=== PATIENT | male | born 1950 | race Two or more races ===

== ENCOUNTER 2016-06-18 16:26 | Inpatient (IN) | payer BC ==
[2016-06-18] MEDS ORDERED: BISACODYL 10 MG SUPP PR PRN (19:00)
[2016-06-18] MEDS ORDERED: GLUCOSE GEL 15 GRAM TUBE PO PRN ×2 (19:00)
[2016-06-18] MEDS ORDERED: DEXTROSE 50% 50 ML SYRINGE IV PRN ×2 (19:00)
[2016-06-18] MEDS ORDERED: GLUCAGON 1 MG INJ IM PRN (19:00)
[2016-06-18] MEDS ORDERED: GLUCOSE GEL 15 GRAM TUBE BUCCAL PRN (19:00)
[2016-06-18] MEDS ORDERED: ACETAMINOPHEN 325 MG TAB PO PRN (19:00)
[2016-06-18] MEDS ORDERED: LACTULOSE 30ML CUP PO PRN (19:00)
[2016-06-18] MEDS ORDERED: MAGNESIUM HYDROXIDE 30ML CUP PO PRN (19:00)
[2016-06-18 20:00] VITALS: BP 125/82; RESP 18
[2016-06-18] MEDS: Insulin NOVOLOG SS MILD Algorithm (SS with meals and bedtime) SC SCH (21:00)
[2016-06-18] MEDS: ATORVASTATIN 80 MG TAB PO SCH (21:05)
[2016-06-18] MEDS: SENNA TAB PO SCH (21:05)
[2016-06-18] MEDS: DOCUSATE SODIUM 100 MG CAP PO SCH (21:06)
[2016-06-18] MEDS: HEPARIN 5,000 UNIT/0.5 ML SYG SC SCH (21:13)
[2016-06-18 23:17] LABS: ADD UMIC YES; URINE BILIRUBIN (Dip) NEGATIVE (NEGATIVE); URINE BLOOD (Dip) 1+ (NEGATIVE); URINE COLOR LT. YELLOW (YELLOW); URINE GLUCOSE (Dip) NEGATIVE (NEGATIVE); URINE KETONES (Dip) TRACE (NEGATIVE); URINE LEUKOCYTE ESTERASE (Dip) TRACE (NEGATIVE); URINE NITRITE (Dip) NEGATIVE (NEGATIVE); URINE TOTAL PROTEIN (Dip) NEGATIVE (NEGATIVE); URINE UROBILINOGEN (Dip) 1.0 E.U./dL (0.1-1.0)
[2016-06-18 23:49] LABS: BACTERIA,URINE FEW; SQUAMOUS EPITHELIAL CELL,UR RARE
[2016-06-19] MEDS: HEPARIN 5,000 UNIT/0.5 ML SYG SC SCH ×3 (06:29→21:21)
[2016-06-19 06:52] LABS: BASOPHIL # 0.1 10^3/ul (0.0-0.1); BASOPHILS % 0.7 % (0.0-2.0); EOSINOPHILS # 0.3 10^3/ul (0.0-0.5); EOSINOPHILS % 3.1 % (0.0-7.0); HEMATOCRIT 44.2 % (42.0-52.0); LYMPHOCYTES # 1.3 10^3/ul (0.8-2.9); LYMPHOCYTES % 14.1 % (15.0-51.0); MEAN CORPUSCULAR HEMOGLOBIN 28.6 pg (29.0-33.0); MEAN CORPUSCULAR VOLUME 84.1 fl (82.0-101.0); MEAN PLATELET VOLUME 8.8 fl (7.4-10.4); MONOCYTE # 1.6 10^3/ul (0.3-0.9); MONOCYTES % 17.3 % (0.0-11.0); NEUTROPHIL # 5.8 10^3/ul (1.6-7.5); NEUTROPHILS % 64.8 % (39.0-77.0); PLATELET COUNT 203 10^3/UL (140-440); RED BLOOD COUNT 5.26 10^6/ul (4.70-6.10); RED CELL DISTRIBUTION WIDTH 13.5 % (11.5-14.5)
[2016-06-19 06:58] LABS: CONDITION 1; LH ANALYZER COMMENTS 1
[2016-06-19 07:01] LABS: ALBUMIN 4.1 g/dl (3.3-4.9)
[2016-06-19 07:02] LABS: POTASSIUM 4.2 mmol/L (3.5-5.1)
[2016-06-19 07:04] LABS: ALBUMIN/GLOBULIN RATIO 1.1; BILIRUBIN,INDIRECT 0.5 mg/dl (0-1.1); BILIRUBIN,TOTAL 0.5 mg/dl (0.2-1.3); CREATININE 0.81 mg/dl (0.61-1.24); TOTAL PROTEIN 7.8 g/dl (6.1-8.1)
[2016-06-19 07:05] LABS: CALCIUM 9.2 mg/dl (8.4-10.2)
[2016-06-19] MEDS: Insulin NOVOLOG SS MILD Algorithm (SS with meals and bedtime) SC SCH ×4 (07:05→21:00)
[2016-06-19 08:17] VITALS: BP 128/93; PULSE 84; RESP 18
[2016-06-19] MEDS: AMLODIPINE 10 MG TAB PO SCH (08:38)
[2016-06-19] MEDS: DOCUSATE SODIUM 100 MG CAP PO SCH ×2 (08:38→21:15)
[2016-06-19] MEDS: ASPIRIN 81 MG TAB PO SCH (08:38)
[2016-06-19] MEDS: LISINOPRIL 20 MG TAB PO SCH (08:39)
--- NOTE | 2016-06-19 10:36 | HP ---
DATE OF ADMISSION: 06/18/2016 CHIEF COMPLAINT: Acute stroke, cerebrovascular accident. HISTORY OF PRESENT ILLNESS: This is a 65-year-old male with a past medical history of hypertension who presented to an outside hospital with complaints of right-sided weakness. The patient's history began last several hours prior to admission when he noted early in the a.m. a right-sided weakness and arm weakness and difficulty ambulating. The patient went to work, was noted to have slurred spe ech by his coworkers, as a result he came to the emergency room for evaluation. [facility] which showed evidence of subacute infarct of the left nelson. The patient was s ubsequently admitted to [facility] telemetry. He was seen by a neurologist. The patient was started on aspirin and statin therapy. The patient's blood pressures were improved during his hospital course. The patient, however, had a significant premorbid decline was transferred to [facility] acute rehab for continued care. Upon my evaluation of patient at this time he is currently stable, complaining of right-sided weakne ss. Denies any fevers, chills, nausea, vomiting, shortness of breath. PAST MEDICAL HISTORY: History of hypertension. ALLERGIES: NO KNOWN DRUG ALLERGIES. SOCIAL HISTORY: Does not smoke or do drugs. PAST SURGICAL HISTORY: None. MEDICATIONS: Patient medications have been reviewed and reconciled. FAMILY HISTORY: Noncontributory. REVIEW OF SYSTEMS: A 14-point review of systems was conducted. Pertinent positives in HPI, otherwi se negative. PHYSICAL EXAMINATION: VITAL SIGNS: Blood pressure is 120/93, respiration 18, pulse 84, temperature 98.3. HEENT: Head is normocephalic. Pupils are reactive to light. NECK: Supple. HEART: Regular rate. LUNGS: Show diminished breath sounds at the base. ABDOMEN: Soft, nontender to palpation. No rebound or guarding. EXTREMITIES: Negative for clubbing, cyanosis, no edema. DERMATOLOGIC: No rashes. NEUROLOGIC: The patient has noted right-sided weakness and pronated drift. LABORATORY DATA: Shows white count 9.0, hemoglobin 15.0, platelet count is 3203. BMP within normal limits. Urinalysis shows no growth. ASSESSMENT AND PLAN: This is a 65-year-old male who presents with: 1. Acute cerebrovascular accident of the left enlson with noted right-sided weakness. Plan at this p oint is for the patient to receive physical therapy and occupational therapy. Will continue medical management with aspirin and statin therapy. Continue current blood pressure regimen, would keep sy stolic blood pressures less than 140. Otherwise, continue supportive care. 2. Hypertension. Blood pressure currently well controlled. Continue current medical management wi th lisinopril and amlodipine. 3. Dyslipidemia. Continue statin therapy. 4. Gastrointestinal and deep venous thrombosis prophylaxis. Continue proton pump inhibitor and hep samuel. 5. Hyperglycemia, possible diabetes. Will check hemoglobin A1c. Continue insulin sliding scale at this time. Please note I spent over 30 minutes of face to face time with this patient, discussing code status. The patient is FULL CODE. Dictated By: ALPESH CARPENTER/RENEE Conf#: [id number] DID#: [id number]
--- NOTE | 2016-06-19 12:38 | CONS ---
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 ACTIVE COMORBIDITIES: 1. Dysphagia. 2. Hypertension. 3. Diabetes mellitus. 4. Impairments in self-care, mobility and cognition. HISTORY OF PRESENT ILLNESS: The patient is a pleasant 65-year-old right-handed gentleman with a his tory of hypertension, diabetes mellitus who was admitted to [facility] with severa l hours of right-sided weakness, dysarthria and gait instability. MRI of the brain did demonstrate a subacute infarct in the left nelson. The patient was also noted to have significant dysphagia and i mpairments in self-care and mobility as compared to baseline. The patient has been cleared to trans adriana to the rehabilitation unit for comprehensive interdisciplinary rehab care. FUNCTIONAL HISTORY: Prior to recent events, he was independent in self-care tasks and mobility. Cu rrently, he requires moderate to maximal assist for self-care and mobility tasks. I have reviewed the preadmission screen and the patient's current functional status is consistent wi th the preadmission screen. SOCIAL HISTORY: The patient lives at home with family and hopes to return there upon discharge. PAST MEDICAL HISTORY: 1. Hypertension. 2. Diabetes mellitus. CURRENT MEDICATIONS: 1. Amlodipine 10 mg p.o. daily. 2. Lisinopril 40 mg p.o. daily. 3. Atorvastatin 80 mg p.o. daily. 4. Aspirin 81 mg p.o. daily. 5. Heparin 5000 units subq t.i.d. ALLERGIES: THE PATIENT WITH NO KNOWN DRUG ALLERGIES. PHYSICAL EXAMINATION: VITAL SIGNS: The patient is currently afebrile with stable vital signs. HEENT: Extraocular motions are intact. The patient with decreased nasolabial fold. The oropharynx is clear. NECK: Supple. LUNGS: Clear anteriorly. CARDIAC: S1, S2. ABDOMEN: Soft, nontender, positive bowel sounds. NEUROLOGIC: He has a notable dysarthria. He will follow simple 1-step commands. He demonstrates g ood strength in the left upper and lower extremity. He has 3- strength in the right upper extremity , 3+ to 4- strength in the right lower extremity. He has impaired static and dynamic balance. PLAN: The patient has been admitted for comprehensive interdisciplinary acute rehab and is anticipa julian to tolerate 3 hours of daily therapy in divided doses for at least 5/7 days a week. The treatme nt plan will include: 1. Physical therapy to focus on bed mobility, transfers, and household ambulation with the goal of having the patient reach a standby assist level. 2. Occupational therapy to focus on hygiene, grooming, dressing, bathing, and toileting activities with the goal of having the patient reach standby assist level. 3. Speech therapy for full dysphasia management and cognitive assessment and training with the goal of having the patient meet nutritional needs by mouth and to return to baseline cognition. 4. Rehabilitation nursing for carryover of therapeutic interventions, the goal of continent of lee l and bladder, and the goal of patient and family education with regards to the aforementioned issue s. REHABILITATION BARRIER: Dysphagia. INTERVENTION FOR BARRIER: Speech therapy. I acknowledge that I performed a full physical examination on this patient within 24 hours of admiss ion to the rehabilitation unit. I believe the patient is a good candidate for comprehensive interdi sciplinary rehab care and is anticipated to make reasonable goals in a reasonable period of time as outlined above. Dictated By: FAINA HECTOR/RENEE Conf#: [id number] DID#: [id number]
[2016-06-19 20:10] VITALS: BP 127/77; RESP 18
[2016-06-19] MEDS: SENNA TAB PO SCH (21:15)
[2016-06-19] MEDS: ATORVASTATIN 80 MG TAB PO SCH (21:15)
[2016-06-20] MEDS: HEPARIN 5,000 UNIT/0.5 ML SYG SC SCH ×3 (05:58→21:00)
[2016-06-20] MEDS: Insulin NOVOLOG SS MILD Algorithm (SS with meals and bedtime) SC SCH ×4 (07:05→20:54)
[2016-06-20 07:30] VITALS: BP 139/83; RESP 18
[2016-06-20] MEDS: DOCUSATE SODIUM 100 MG CAP PO SCH ×2 (08:19→20:53)
[2016-06-20] MEDS: AMLODIPINE 10 MG TAB PO SCH (08:19)
[2016-06-20] MEDS: LISINOPRIL 20 MG TAB PO SCH (08:19)
[2016-06-20] MEDS: ASPIRIN 81 MG TAB PO SCH (08:19)
--- NOTE | 2016-06-20 09:56 | PN ---
DATE: 06/20/2016 SUBJECTIVE: The patient is stable, no acute events overnight. No fevers, chills, nausea, vomiting. OBJECTIVE: VITAL SIGNS: Blood pressure 127/77, respiration 18, pulse 94, temperature 98.4. HEENT: Head is normocephalic. NECK: Supple. HEART: Regular rate. LUNGS: Show diminished breath sounds at the base. ABDOMEN: Soft, nontender to palpation. No rebound or guarding. EXTREMITIES: Negative for clubbing, cyanosis. No edema. DERMATOLOGIC: No rashes. MUSCULOSKELETAL: No joint effusions. NEUROLOGIC: No change in exam. MEDICATIONS: Patient's medications have been reviewed. LABORATORY DATA: Have been reviewed. No new labs. ASSESSMENT AND PLAN: 1. Acute cerebrovascular accident left pontine. Patient has right-sided weakness. Plan is to cont inue physical therapy and occupational therapy. Continue medical management with statin therapy and aspirin. Continue to monitor closely. 2. Hypertension. Continue current blood pressure regimen. 3. Diabetes. The patient's hemoglobin A1c is elevated. Continue metformin. Continue insulin slid ing scale. 4. Dyslipidemia. Continue statin therapy. 5. Gastrointestinal and deep venous thrombosis prophylaxis. Continue proton pump inhibitor and hep samuel. Dictated By: ALPESH CARPENTER/RENEE Conf#: [id number] DID#: [id number]
--- NOTE | 2016-06-20 12:22 | CONS ---
Date/Time of Note Date/Time of Note DATE: 06/20/16 TIME: 12:21 Consult Date/Type/Reason Admit Date/Time Jun 18, 2016 at 17:50 Initial Consult Date Subjective Feeling better, no new complaints Objective pulm- cta card- s1s2 mod assist ambulation Vital Signs Date Time Temp Pulse Resp B/P Pulse Ox O2 Delivery O2 Flow Rate FiO2 06/20/16 07:30 99.7 98 18 139/83 96 06/19/16 08:17 Room Air Intake and Output 06/19/16 06/19/16 06/20/16 15:00 23:00 07:00 Intake Total 480 ml 240 ml 240 ml Output Total 350 ml 250 ml 300 ml Balance 130 ml -10 ml -60 ml Results/Medications Result Diagram: 06/19/1625 06/19/16624 Results 24 hrs Laboratory Tests Test 06/19/16 16:44 06/19/16 21:14 06/20/16 07:02 06/20/16 11:54 Bedside Glucose 103 122 114 115 Medications Current Medications Docusate Sodium (Colace) 100 mg BID PO Last administered on 06/20/16 08:19; Admin Dose 100 MG; Start 06/18/16 at 21:00 Senna (Senokot) 1 tab HS PO Last administered on 06/19/16 21:15; Admin Dose 1 TAB; Start 06/18/16 at 21:00 Acetaminophen (Tylenol Tab) 650 mg Q4H PRN PO PAIN; Start 06/18/16 at 19:00 Bisacodyl (Dulcolax Supp) 10 mg DAILY PRN [place] CONSTIPATION; Start 06/18/16 at 19 :00 Magnesium Hydroxide (Milk Of Mag) 30 ml BID PRN PO CONSTIPATION; Start at 19:00 Lactulose (Enulose) 20 gm DAILY PRN PO CONSTIPATION; Start 06/18/16 at 19:00 Miscellaneous Information 1 ea NOTE XX ; Start 06/18/16 at 19:00 Glucose (Glutose) 15 gm Q15M PRN PO DECREASED GLUCOSE; Start 06/18/16 at 19:00 Glucose (Glutose) 22.5 gm Q15M PRN PO DECREASED GLUCOSE; Start 06/18/16 at 19: 00 Dextrose (D50w Syringe) 25 ml Q15M PRN IV DECREASED GLUCOSE; Start 06/18/16 at 19:00 Dextrose (D50w Syringe) 50 ml Q15M PRN IV DECREASED GLUCOSE; Start 06/18/16 at 19:00 Glucagon (Glucagen) 1 mg Q15M PRN IM DECREASED GLUCOSE; Start 06/18/16 at 19:00 Glucose (Glutose) 15 gm Q15M PRN BUCCAL DECREASED GLUCOSE; Start 06/18/16 at 19 :00 Amlodipine Besylate (Norvasc) 10 mg DAILY PO Last administered on 06/20/16 08: 19; Admin Dose 10 MG; Start 06/19/16 at 09:00 Aspirin (Aspirin) 81 mg DAILY PO Last administered on 06/20/16 08:19; Admin Dose 81 MG; Start 06/19/16 at 09:00 Atorvastatin Calcium (Lipitor) 80 mg HS PO Last administered on 06/19/16 21:15 ; Admin Dose 80 MG; Start 06/18/16 at 21:00 Heparin Sodium (Porcine) (Heparin (5000 Units/0.5 ml)) 5,000 unit Q8 SC Last administered on 06/20/16 05:58; Admin Dose 5,000 UNIT; Start 06/18/16 at 22:00 Lisinopril (Zestril) 40 mg DAILY PO Last administered on 06/20/16 08:19; Admin Dose 40 MG; Start 06/19/16 at 09:00 Assessment/Plan Additional Assessment/Plan Rehab- Left pontine infarct cerebrovascular accident with right-sided weakness. Tolerating rehab program. Fit with Toe-off AFO and knee brace. Dysphagia- speech therapy. Hypertension. Diabetes mellitus-monitor. FAINA JAIN MD Jun 20, 2016 12:22
[2016-06-20] MEDS: metFORMIN 500 MG TAB PO SCH (18:25)
[2016-06-20 20:00] VITALS: BP 140/86; RESP 18
[2016-06-20] MEDS: ATORVASTATIN 80 MG TAB PO SCH (20:53)
[2016-06-20] MEDS: SENNA TAB PO SCH (20:54)
[2016-06-21] MEDS: HEPARIN 5,000 UNIT/0.5 ML SYG SC SCH ×3 (06:14→22:00)
[2016-06-21] MEDS: Insulin NOVOLOG SS MILD Algorithm (SS with meals and bedtime) SC SCH ×4 (07:05→20:51)
[2016-06-21 07:41] VITALS: BP 101/55; PULSE 84; RESP 18
[2016-06-21 08:00] VITALS: BP 138/68; RESP 20
[2016-06-21] MEDS: AMLODIPINE 10 MG TAB PO SCH (08:14)
[2016-06-21] MEDS: ASPIRIN 81 MG TAB PO SCH (08:14)
[2016-06-21] MEDS: LISINOPRIL 20 MG TAB PO SCH (08:14)
[2016-06-21] MEDS: DOCUSATE SODIUM 100 MG CAP PO SCH ×2 (08:14→20:45)
[2016-06-21] MEDS: metFORMIN 500 MG TAB PO SCH ×2 (08:14→17:31)
[2016-06-21 08:15] VITALS: BP 126/84; PULSE 84; RESP 18
--- NOTE | 2016-06-21 09:25 | CONS ---
Date/Time of Note Date/Time of Note DATE: 06/21/16 TIME: 09:23 Consult Date/Type/Reason Admit Date/Time Jun 18, 2016 at 17:50 Initial Consult Date Subjective The patient is stable, no acute events overnight. No fevers, chills, nausea, vomiting. Tolerating meds and therapies OBJECTIVE: VITAL SIGNS: Blood pressure 127/77, respiration 18, pulse 94, temperature 98.4. HEENT: Head is normocephalic. NECK: Supple. HEART: Regular rate. LUNGS: Show diminished breath sounds at the base. ABDOMEN: Soft, nontender to palpation. No rebound or guarding. EXTREMITIES: Negative for clubbing, cyanosis. No edema. DERMATOLOGIC: No rashes. MUSCULOSKELETAL: No joint effusions. NEUROLOGIC: No change in exam. MEDICATIONS: Patient's medications have been reviewed. Objective Vital Signs Date Time Temp Pulse Resp B/P Pulse Ox O2 Delivery O2 Flow Rate FiO2 06/21/16 08:15 96.7 84 18 126/84 97 Room Air Intake and Output 06/20/16 06/20/16 06/21/16 15:00 23:00 07:00 Intake Total 240 ml Output Total 500 ml Balance 240 ml -500 ml Results/Medications Result Diagram: 06/19/16 0625 06/19/16 0625 Results 24 hrs Laboratory Tests Test 06/20/16 11:54 06/20/16 17:28 06/20/16 20:42 06/21/16 07:27 Bedside Glucose 115 113 107 117 Medications Current Medications Docusate Sodium (Colace) 100 mg BID PO Last administered on 06/20/16 08:19; Admin Dose 100 MG; Start 06/18/16 at 21:00 Senna (Senokot) 1 tab HS PO Last administered on 06/19/16 21:15; Admin Dose 1 TAB; Start 06/18/16 at 21:00 Acetaminophen (Tylenol Tab) 650 mg Q4H PRN PO PAIN Last administered on 07:42; Admin Dose 650 MG; Start 06/18/16 at 19:00 Bisacodyl (Dulcolax Supp) 10 mg DAILY PRN [place] CONSTIPATION; Start 06/18/16 at 19 :00 Magnesium Hydroxide (Milk Of Mag) 30 ml BID PRN PO CONSTIPATION; Start at 19:00 Lactulose (Enulose) 20 gm DAILY PRN PO CONSTIPATION; Start 06/18/16 at 19:00 Miscellaneous Information 1 ea NOTE XX ; Start 06/18/16 at 19:00 Glucose (Glutose) 15 gm Q15M PRN PO DECREASED GLUCOSE; Start 06/18/16 at 19:00 Glucose (Glutose) 22.5 gm Q15M PRN PO DECREASED GLUCOSE; Start 06/18/16 at 19: 00 Dextrose (D50w Syringe) 25 ml Q15M PRN IV DECREASED GLUCOSE; Start 06/18/16 at 19:00 Dextrose (D50w Syringe) 50 ml Q15M PRN IV DECREASED GLUCOSE; Start 06/18/16 at 19:00 Glucagon (Glucagen) 1 mg Q15M PRN IM DECREASED GLUCOSE; Start 06/18/16 at 19:00 Glucose (Glutose) 15 gm Q15M PRN BUCCAL DECREASED GLUCOSE; Start 06/18/16 at 19 :00 Amlodipine Besylate (Norvasc) 10 mg DAILY PO Last administered on 06/21/16 08: 14; Admin Dose 10 MG; Start 06/19/16 at 09:00 Aspirin (Aspirin) 81 mg DAILY PO Last administered on 06/21/16 08:14; Admin Dose 81 MG; Start 06/19/16 at 09:00 Atorvastatin Calcium (Lipitor) 80 mg HS PO Last administered on 06/20/16 20:53 ; Admin Dose 80 MG; Start 06/18/16 at 21:00 Heparin Sodium (Porcine) (Heparin (5000 Units/0.5 ml)) 5,000 unit Q8 SC Last administered on 06/21/16 06:14; Admin Dose 5,000 UNIT; Start 06/18/16 at 22:00 Lisinopril (Zestril) 40 mg DAILY PO Last administered on 06/21/16 08:14; Admin Dose 40 MG; Start 06/19/16 at 09:00 Assessment/Plan Chief Complaint/Hosp Course ASSESSMENT AND PLAN: 1. Acute cerebrovascular accident left pontine. Patient has right-sided weakness. Plan is to continue physical therapy and occupational therapy. Continue medical management with statin therapy and aspirin. Continue to monitor closely. 2. Hypertension. Continue current blood pressure regimen. 3. Diabetes. The patient's hemoglobin A1c is elevated. Continue metformin. Continue insulin sliding scale. 4. Dyslipidemia. Continue statin therapy. 5. Gastrointestinal and deep venous thrombosis prophylaxis. Continue proton pump inhibitor and heparin. Problems: SARAVANAN KNAPP MD Jun 21, 2016 09:25
--- NOTE | 2016-06-21 14:25 | PN ---
Date/Time of Note Date/Time of Note DATE: 06/21/16 TIME: 14:20 Assessment/Plan VTE Prophylaxis VTE Prophylaxis Intervention: heparin Lines/Catheters Urinary Cath still in place: No Assessment/Plan Assessment/Plan 1. Acute left pontine cerebrovascular accident with right-sided dominant hemiparesis, impaired mobility/gait/ADLs/cognition, dysarthria, and dysphagia. Continue PT/OT/ST. Min to mod assist for bed mobility, mod assist for transfers. Continue Secondary stroke prevention per neurology, on ASA and statin. 2. Dysphagia. Continue modified diet per speech therapy, swallowing training with ST. Maintain aspiration precautions. 3.Hypertension. BP controlled. Continue medical management. 4. Diabetes mellitus. Blood sugars controlled. Continue medical management with metformin and insulin regimen. Subjective 24 Hr Interval Summary Free Text/Dictation Rehab progress Subjective: No new complaints. No acute overnight events per nursing staff. ROS: Denies headache, no dizziness, no shortness of breath, no chest pain, no abdominal pain, no nausea or vomiting. Exam/Review of Systems Vital Signs Vitals Vital Signs Date Time Temp Pulse Resp B/P Pulse Ox O2 Delivery O2 Flow Rate FiO2 06/21/16 08:15 96.7 84 18 126/84 97 Room Air Intake and Output 06/20/16 06/20/16 06/21/16 15:00 23:00 07:00 Intake Total 240 ml Output Total 500 ml Balance 240 ml -500 ml Exam General: Awake, alert, no acute distress CV: Regular rate, s1s2 Lungs: Clear to auscultation, no wheezing Abdomen soft, nontender, bowel sounds present Extremities: RLE AFO brace in place. No cyanosis. Neuro: Follows simple commands. Right sided hemiparesis. Results Result Diagram: 06/19/1625 06/19/1625 Results 24 hrs Laboratory Tests Test 06/20/16 17:28 06/20/16 20:42 06/21/16 07:27 06/21/16 11:48 Bedside Glucose 113 107 117 106 Medications Medications Current Medications Docusate Sodium (Colace) 100 mg BID PO Last administered on 06/20/16 08:19; Admin Dose 100 MG; Start 06/18/16 at 21:00 Senna (Senokot) 1 tab HS PO Last administered on 06/19/16 21:15; Admin Dose 1 TAB; Start 06/18/16 at 21:00 Acetaminophen (Tylenol Tab) 650 mg Q4H PRN PO PAIN Last administered on 07:42; Admin Dose 650 MG; Start 06/18/16 at 19:00 Bisacodyl (Dulcolax Supp) 10 mg DAILY PRN [place] CONSTIPATION; Start 06/18/16 at 19 :00 Magnesium Hydroxide (Milk Of Mag) 30 ml BID PRN PO CONSTIPATION; Start at 19:00 Lactulose (Enulose) 20 gm DAILY PRN PO CONSTIPATION; Start 06/18/16 at 19:00 Miscellaneous Information 1 ea NOTE XX ; Start 06/18/16 at 19:00 Glucose (Glutose) 15 gm Q15M PRN PO DECREASED GLUCOSE; Start 06/18/16 at 19:00 Glucose (Glutose) 22.5 gm Q15M PRN PO DECREASED GLUCOSE; Start 06/18/16 at 19: 00 Dextrose (D50w Syringe) 25 ml Q15M PRN IV DECREASED GLUCOSE; Start 06/18/16 at 19:00 Dextrose (D50w Syringe) 50 ml Q15M PRN IV DECREASED GLUCOSE; Start 06/18/16 at 19:00 Glucagon (Glucagen) 1 mg Q15M PRN IM DECREASED GLUCOSE; Start 06/18/16 at 19:00 Glucose (Glutose) 15 gm Q15M PRN BUCCAL DECREASED GLUCOSE; Start 06/18/16 at 19 :00 Amlodipine Besylate (Norvasc) 10 mg DAILY PO Last administered on 06/21/16 08: 14; Admin Dose 10 MG; Start 06/19/16 at 09:00 Aspirin (Aspirin) 81 mg DAILY PO Last administered on 06/21/16 08:14; Admin Dose 81 MG; Start 06/19/16 at 09:00 Atorvastatin Calcium (Lipitor) 80 mg HS PO Last administered on 06/20/16 20:53 ; Admin Dose 80 MG; Start 06/18/16 at 21:00 Heparin Sodium (Porcine) (Heparin (5000 Units/0.5 ml)) 5,000 unit Q8 SC Last administered on 06/21/16 14:10; Admin Dose 5,000 UNIT; Start 06/18/16 at 22:00 Lisinopril (Zestril) 40 mg DAILY PO Last administered on 06/21/16 08:14; Admin Dose 40 MG; Start 06/19/16 at 09:00 CHERYL SHIN Jun 21, 2016 14:25
[2016-06-21 19:00] VITALS: BP 125/78; RESP 20
[2016-06-21] MEDS: ATORVASTATIN 80 MG TAB PO SCH (20:45)
[2016-06-21] MEDS: SENNA TAB PO SCH (20:45)
[2016-06-22] MEDS: HEPARIN 5,000 UNIT/0.5 ML SYG SC SCH ×3 (06:49→21:19)
[2016-06-22] MEDS: Insulin NOVOLOG SS MILD Algorithm (SS with meals and bedtime) SC SCH ×4 (07:05→21:00)
[2016-06-22 07:30] VITALS: BP 127/78; RESP 18
[2016-06-22] MEDS: metFORMIN 500 MG TAB PO SCH ×2 (07:54→17:28)
[2016-06-22] MEDS: DOCUSATE SODIUM 100 MG CAP PO SCH ×2 (08:29→21:07)
[2016-06-22] MEDS: ASPIRIN 81 MG TAB PO SCH (08:29)
[2016-06-22] MEDS: AMLODIPINE 10 MG TAB PO SCH (08:29)
[2016-06-22] MEDS: LISINOPRIL 20 MG TAB PO SCH (08:30)
--- NOTE | 2016-06-22 09:35 | CONS ---
Date/Time of Note Date/Time of Note DATE: 06/22/16 TIME: 09:35 Consult Date/Type/Reason Admit Date/Time Jun 18, 2016 at 17:50 Subjective The patient is stable, no acute events overnight. No fevers, chills, nausea, vomiting. Tolerating meds and therapies OBJECTIVE: HEENT: Head is normocephalic. NECK: Supple. HEART: Regular rate. LUNGS: Show diminished breath sounds at the base. ABDOMEN: Soft, nontender to palpation. No rebound or guarding. EXTREMITIES: Negative for clubbing, cyanosis. No edema. DERMATOLOGIC: No rashes. MUSCULOSKELETAL: No joint effusions. NEUROLOGIC: No change in exam. Objective Vital Signs Date Time Temp Pulse Resp B/P Pulse Ox O2 Delivery O2 Flow Rate FiO2 06/21/16 19:00 98.7 89 20 125/78 97 06/21/16 08:15 Room Air Intake and Output 06/21/16 06/21/16 06/22/16 15:00 23:00 07:00 Intake Total 870 ml 650 ml 300 ml Output Total 600 ml Balance 270 ml 650 ml 300 ml Results/Medications Result Diagram: 06/19/16 0625 06/19/16 0625 Results 24 hrs Laboratory Tests Test 06/21/16 11:48 06/21/16 17:07 06/21/16 20:08 06/22/16 07:23 Bedside Glucose 106 101 146 113 Medications Current Medications Docusate Sodium (Colace) 100 mg BID PO Last administered on 06/22/16 08:29; Admin Dose 100 MG; Start 06/18/16 at 21:00 Senna (Senokot) 1 tab HS PO Last administered on 06/21/16 20:45; Admin Dose 1 TAB; Start 06/18/16 at 21:00 Acetaminophen (Tylenol Tab) 650 mg Q4H PRN PO PAIN Last administered on 07:42; Admin Dose 650 MG; Start 06/18/16 at 19:00 Bisacodyl (Dulcolax Supp) 10 mg DAILY PRN [place] CONSTIPATION; Start 06/18/16 at 19 :00 Magnesium Hydroxide (Milk Of Mag) 30 ml BID PRN PO CONSTIPATION; Start at 19:00 Lactulose (Enulose) 20 gm DAILY PRN PO CONSTIPATION; Start 06/18/16 at 19:00 Miscellaneous Information 1 ea NOTE XX ; Start 06/18/16 at 19:00 Glucose (Glutose) 15 gm Q15M PRN PO DECREASED GLUCOSE; Start 06/18/16 at 19:00 Glucose (Glutose) 22.5 gm Q15M PRN PO DECREASED GLUCOSE; Start 06/18/16 at 19: 00 Dextrose (D50w Syringe) 25 ml Q15M PRN IV DECREASED GLUCOSE; Start 06/18/16 at 19:00 Dextrose (D50w Syringe) 50 ml Q15M PRN IV DECREASED GLUCOSE; Start 06/18/16 at 19:00 Glucagon (Glucagen) 1 mg Q15M PRN IM DECREASED GLUCOSE; Start 06/18/16 at 19:00 Glucose (Glutose) 15 gm Q15M PRN BUCCAL DECREASED GLUCOSE; Start 06/18/16 at 19 :00 Amlodipine Besylate (Norvasc) 10 mg DAILY PO Last administered on 06/22/16 08: 29; Admin Dose 10 MG; Start 06/19/16 at 09:00 Aspirin (Aspirin) 81 mg DAILY PO Last administered on 06/22/16 08:29; Admin Dose 81 MG; Start 06/19/16 at 09:00 Atorvastatin Calcium (Lipitor) 80 mg HS PO Last administered on 06/21/16 20:45 ; Admin Dose 80 MG; Start 06/18/16 at 21:00 Heparin Sodium (Porcine) (Heparin (5000 Units/0.5 ml)) 5,000 unit Q8 SC Last administered on 06/22/16 06:49; Admin Dose 5,000 UNIT; Start 06/18/16 at 22:00 Lisinopril (Zestril) 40 mg DAILY PO Last administered on 06/22/16 08:30; Admin Dose 40 MG; Start 06/19/16 at 09:00 Assessment/Plan Chief Complaint/Hosp Course ASSESSMENT AND PLAN: 1. Acute cerebrovascular accident left pontine. Patient has right-sided weakness. Plan is to continue physical therapy and occupational therapy. Continue medical management with statin therapy and aspirin. Continue to monitor closely. 2. Hypertension. Continue current blood pressure regimen. 3. Diabetes. The patient's hemoglobin A1c is elevated. Continue metformin. Continue insulin sliding scale. 4. Dyslipidemia. Continue statin therapy. 5. Gastrointestinal and deep venous thrombosis prophylaxis. Continue proton pump inhibitor and heparin. Problems: SARAVANAN KNAPP MD Jun 22, 2016 09:35
[2016-06-22 19:47] VITALS: BP 139/85; RESP 22
[2016-06-22] MEDS: SENNA TAB PO SCH (21:07)
[2016-06-22] MEDS: ATORVASTATIN 80 MG TAB PO SCH (21:07)
[2016-06-23] MEDS: HEPARIN 5,000 UNIT/0.5 ML SYG SC SCH ×3 (06:34→21:24)
[2016-06-23] MEDS: Insulin NOVOLOG SS MILD Algorithm (SS with meals and bedtime) SC SCH ×4 (07:05→21:00)
[2016-06-23 07:30] VITALS: BP 129/74; RESP 18
[2016-06-23] MEDS: DOCUSATE SODIUM 100 MG CAP PO SCH ×2 (08:24→21:00)
[2016-06-23] MEDS: ASPIRIN 81 MG TAB PO SCH (08:24)
[2016-06-23] MEDS: metFORMIN 500 MG TAB PO SCH ×2 (08:24→17:31)
[2016-06-23] MEDS: AMLODIPINE 10 MG TAB PO SCH (08:24)
[2016-06-23] MEDS: LISINOPRIL 20 MG TAB PO SCH (08:24)
--- NOTE | 2016-06-23 11:23 | CONS ---
Date/Time of Note Date/Time of Note DATE: 06/23/16 TIME: 11:23 Consult Date/Type/Reason Admit Date/Time Jun 18, 2016 at 17:50 Subjective No new complaints Objective pulm- cta card- s1s2 Vital Signs Date Time Temp Pulse Resp B/P Pulse Ox O2 Delivery O2 Flow Rate FiO2 06/23/16 07:30 98.4 87 18 129/74 95 06/21/16 08:15 Room Air Intake and Output 06/22/16 06/22/16 06/23/16 15:00 23:00 07:00 Intake Total 810 ml Output Total 700 ml Balance 110 ml INTERDISCIPLINARY TEAM CONFERENCE BOWEL- Cont BLADDER-Cont SKIN- intact OT- DRESSING-mod/max BATHING-mod/max TOILETING-mod PT- BED MOBILITY-mod TRANSFERS-mod AMBULATION-mod 30 feet SPEECH- COGNITION-mod DYPHAGIA A/P- Interdisciplinary team conference held today. Please see interdisciplinary sheet. Working toward d.c. on 06/27 with post discharge follow up of physical therapy, occupational therapy, speech therapy in a 24 hour supervised environment Results/Medications Result Diagram: 06/19/16 0625 06/19/16 0625 Results 24 hrs Laboratory Tests Test 06/22/16 11:53 06/22/16 16:47 06/22/16 21:06 06/23/16 07:20 Bedside Glucose 89 95 97 109 Medications Current Medications Docusate Sodium (Colace) 100 mg BID PO Last administered on 06/23/16 08:24; Admin Dose 100 MG; Start 06/18/16 at 21:00 Senna (Senokot) 1 tab HS PO Last administered on 06/22/16 21:07; Admin Dose 1 TAB; Start 06/18/16 at 21:00 Acetaminophen (Tylenol Tab) 650 mg Q4H PRN PO PAIN Last administered on 07:42; Admin Dose 650 MG; Start 06/18/16 at 19:00 Bisacodyl (Dulcolax Supp) 10 mg DAILY PRN [place] CONSTIPATION; Start 06/18/16 at 19 :00 Magnesium Hydroxide (Milk Of Mag) 30 ml BID PRN PO CONSTIPATION; Start at 19:00 Lactulose (Enulose) 20 gm DAILY PRN PO CONSTIPATION; Start 2/15/17 at 19:00 Miscellaneous Information 1 ea NOTE XX ; Start 06/18/16 at 19:00 Glucose (Glutose) 15 gm Q15M PRN PO DECREASED GLUCOSE; Start 06/18/16 at 19:00 Glucose (Glutose) 22.5 gm Q15M PRN PO DECREASED GLUCOSE; Start 06/18/16 at 19: 00 Dextrose (D50w Syringe) 25 ml Q15M PRN IV DECREASED GLUCOSE; Start 06/18/16 at 19:00 Dextrose (D50w Syringe) 50 ml Q15M PRN IV DECREASED GLUCOSE; Start 06/18/16 at 19:00 Glucagon (Glucagen) 1 mg Q15M PRN IM DECREASED GLUCOSE; Start 06/18/16 at 19:00 Glucose (Glutose) 15 gm Q15M PRN BUCCAL DECREASED GLUCOSE; Start 06/18/16 at 19 :00 Amlodipine Besylate (Norvasc) 10 mg DAILY PO Last administered on 06/23/16 08: 24; Admin Dose 10 MG; Start 06/19/16 at 09:00 Aspirin (Aspirin) 81 mg DAILY PO Last administered on 06/23/16 08:24; Admin Dose 81 MG; Start 06/19/16 at 09:00 Atorvastatin Calcium (Lipitor) 80 mg HS PO Last administered on 06/22/16 21:07 ; Admin Dose 80 MG; Start 06/18/16 at 21:00 Heparin Sodium (Porcine) (Heparin (5000 Units/0.5 ml)) 5,000 unit Q8 SC Last administered on 06/23/16 06:34; Admin Dose 5,000 UNIT; Start 06/18/16 at 22:00 Lisinopril (Zestril) 40 mg DAILY PO Last administered on 06/23/16 08:24; Admin Dose 40 MG; Start 06/19/16 at 09:00 FAINA JAIN MD Jun 23, 2016 11:23
--- NOTE | 2016-06-23 13:10 | PN ---
DATE: 06/23/2016 SUBJECTIVE: The patient is stable. He is complaining of some mild throat pain. No other acute even ts noted. No hemoptysis, hematemesis or hematochezia. OBJECTIVE: VITAL SIGNS: Blood pressure is 139/84, respiration is 22, pulse 92, temperature 99.0. HEENT: Head is normocephalic. NECK: Supple. HEART: Regular rate. LUNGS: Show diminished breath sounds at the base. ABDOMEN: Soft, nontender to palpation. No rebound or guarding. EXTREMITIES: Negative for clubbing, cyanosis. No edema. DERMATOLOGIC: No rashes. MUSCULOSKELETAL: No joint effusions. NEUROLOGIC: No change in exam. MEDICATIONS: The patient's medications have been reviewed. LABORATORY DATA: Have been reviewed. No new labs. PROBLEM: 1. 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 The patient is currently receiving physical therapy, continue. Continue medical management with statin therapy and aspirin. 2. Hypertension, controlled. Continue current blood pressure regimen. 3. Asymptomatic pyuria. We will continue to monitor. Defer antibiotics at this time. 4. Diabetes. Continue current insulin regimen. Continue metformin. 5. Dyslipidemia. Continue statin therapy. 6. Gastrointestinal and deep venous thrombosis prophylaxis. Continue proton pump inhibitor and hep samuel. Dictated By: ALPESH CARPENTER/RENEE Conf#: [id number] DID#: [id number]
[2016-06-23 19:12] VITALS: BP 126/76; RESP 19
[2016-06-23] MEDS: ATORVASTATIN 80 MG TAB PO SCH (20:09)
[2016-06-23] MEDS: SENNA TAB PO SCH (21:00)
[2016-06-24] MEDS: HEPARIN 5,000 UNIT/0.5 ML SYG SC SCH ×3 (06:17→21:11)
[2016-06-24] MEDS: Insulin NOVOLOG SS MILD Algorithm (SS with meals and bedtime) SC SCH ×4 (07:05→20:23)
[2016-06-24 07:10] VITALS: BP 132/76; RESP 20
[2016-06-24] MEDS: ASPIRIN 81 MG TAB PO SCH (08:09)
[2016-06-24] MEDS: LISINOPRIL 20 MG TAB PO SCH (08:10)
[2016-06-24] MEDS: metFORMIN 500 MG TAB PO SCH ×2 (08:10→17:42)
[2016-06-24] MEDS: DOCUSATE SODIUM 100 MG CAP PO SCH ×2 (08:10→20:19)
[2016-06-24] MEDS: AMLODIPINE 10 MG TAB PO SCH (08:10)
[2016-06-24 10:20] LABS: BASOPHILS % 0.5 % (0.0-2.0); EOSINOPHILS # 0.3 10^3/ul (0.0-0.5); EOSINOPHILS % 2.7 % (0.0-7.0); HEMATOCRIT 46.4 % (42.0-52.0); HEMOGLOBIN 15.9 g/dl (14.0-18.0); LYMPHOCYTES # 1.8 10^3/ul (0.8-2.9); MEAN CORPUSCULAR HEMOGLOBIN 28.5 pg (29.0-33.0); MEAN CORPUSCULAR HGB CONC 34.2 g/dl (32.0-37.0); MEAN CORPUSCULAR VOLUME 83.3 fl (82.0-101.0); MEAN PLATELET VOLUME 9.2 fl (7.4-10.4); MONOCYTE # 0.6 10^3/ul (0.3-0.9); MONOCYTES % 5.7 % (0.0-11.0); NEUTROPHIL # 7.3 10^3/ul (1.6-7.5); NEUTROPHILS % 73.1 % (39.0-77.0); PLATELET COUNT 253 10^3/UL (140-440); RED BLOOD COUNT 5.57 10^6/ul (4.70-6.10); RED CELL DISTRIBUTION WIDTH 13.5 % (11.5-14.5)
[2016-06-24 10:23] LABS: CONDITION 1
[2016-06-24 10:27] LABS: POTASSIUM 4.4 mmol/L (3.5-5.1)
[2016-06-24 10:30] LABS: CREATININE 0.72 mg/dl (0.61-1.24)
[2016-06-24 10:31] LABS: CALCIUM 9.7 mg/dl (8.4-10.2); PHOSPHORUS 3.5 mg/dl (2.5-4.9)
--- NOTE | 2016-06-24 11:11 | CONS ---
Date/Time of Note Date/Time of Note DATE: 06/24/16 TIME: 10:58 Consult Date/Type/Reason Admit Date/Time Jun 18, 2016 at 17:50 Subjective No new complaints Objective pulm- cta abd-soft, nt mod-20 feet Vital Signs Date Time Temp Pulse Resp B/P Pulse Ox O2 Delivery O2 Flow Rate FiO2 06/24/16 07:10 98.8 95 20 132/76 93 06/21/16 08:15 Room Air Intake and Output 06/23/16 06/23/16 06/24/16 14:59 22:59 06:59 Intake Total 980 ml 280 ml Output Total 1 ml 1200 ml Balance 979 ml -920 ml Results/Medications Result Diagram: 06/24/16 0943 06/24/16 0943 Results 24 hrs Laboratory Tests Test 06/23/16 12:08 06/23/16 17:10 06/23/16 20:12 06/24/16 07:27 Bedside Glucose 118 102 97 105 Test 06/24/16 09:43 Anion Gap 19 H Basophils # 0.0 Basophils % 0.5 Blood Morphology Comment Blood Urea Nitrogen 22 H Calcium Level 9.7 Carbon Dioxide Level 25 Chloride Level 99 Creatinine 0.72 Eosinophils # 0.3 Eosinophils % 2.7 Glucose Level 143 Hematocrit 46.4 Hemoglobin 15.9 Lymphocytes # 1.8 Lymphocytes % 18.0 Magnesium Level 2.0 Mean Corpuscular Hemoglobin 28.5 L Mean Corpuscular Hemoglobin Concent 34.2 Mean Corpuscular Volume 83.3 Mean Platelet Volume 9.2 Monocytes # 0.6 Monocytes % 5.7 Neutrophils # 7.3 Neutrophils % 73.1 Nucleated Red Blood Cells # 0.0 Nucleated Red Blood Cells % 0.0 Phosphorus Level 3.5 Platelet Count 253 # Potassium Level 4.4 Red Blood Count 5.57 Red Cell Distribution Width 13.5 Sodium Level 139 White Blood Count 10.0 Medications Current Medications Docusate Sodium (Colace) 100 mg BID PO Last administered on 06/24/16 08:10; Admin Dose 100 MG; Start 06/18/16 at 21:00 Senna (Senokot) 1 tab HS PO Last administered on 06/22/16 21:07; Admin Dose 1 TAB; Start 06/18/16 at 21:00 Acetaminophen (Tylenol Tab) 650 mg Q4H PRN PO PAIN Last administered on 07:42; Admin Dose 650 MG; Start 06/18/16 at 19:00 Bisacodyl (Dulcolax Supp) 10 mg DAILY PRN [place] CONSTIPATION; Start 06/18/16 at 19 :00 Magnesium Hydroxide (Milk Of Mag) 30 ml BID PRN PO CONSTIPATION; Start at 19:00 Lactulose (Enulose) 20 gm DAILY PRN PO CONSTIPATION; Start 06/18/16 at 19:00 Miscellaneous Information 1 ea NOTE XX ; Start 06/18/16 at 19:00 Glucose (Glutose) 15 gm Q15M PRN PO DECREASED GLUCOSE; Start 06/18/16 at 19:00 Glucose (Glutose) 22.5 gm Q15M PRN PO DECREASED GLUCOSE; Start 06/18/16 at 19: 00 Dextrose (D50w Syringe) 25 ml Q15M PRN IV DECREASED GLUCOSE; Start 06/18/16 at 19:00 Dextrose (D50w Syringe) 50 ml Q15M PRN IV DECREASED GLUCOSE; Start 06/18/16 at 19:00 Glucagon (Glucagen) 1 mg Q15M PRN IM DECREASED GLUCOSE; Start 06/18/16 at 19:00 Glucose (Glutose) 15 gm Q15M PRN BUCCAL DECREASED GLUCOSE; Start 06/18/16 at 19 :00 Amlodipine Besylate (Norvasc) 10 mg DAILY PO Last administered on 06/24/16 08: 10; Admin Dose 10 MG; Start 06/19/16 at 09:00 Aspirin (Aspirin) 81 mg DAILY PO Last administered on 06/24/16 08:09; Admin Dose 81 MG; Start 06/19/16 at 09:00 Atorvastatin Calcium (Lipitor) 80 mg HS PO Last administered on 06/23/16 20:09 ; Admin Dose 80 MG; Start 06/18/16 at 21:00 Heparin Sodium (Porcine) (Heparin (5000 Units/0.5 ml)) 5,000 unit Q8 SC Last administered on 06/24/16 06:17; Admin Dose 5,000 UNIT; Start 06/18/16 at 22:00 Lisinopril (Zestril) 40 mg DAILY PO Last administered on 06/24/16 08:10; Admin Dose 40 MG; Start 06/19/16 at 09:00 Assessment/Plan Additional Assessment/Plan Rehab- Left pontine infarct cerebrovascular accident with right-sided weakness. Progressing with rehab program. SW working on s environment Dysphagia- speech therapy. Hypertension. Diabetes mellitus-monitor. FAINA JAIN MD Jun 24, 2016 11:11
--- NOTE | 2016-06-24 11:56 | PN ---
DATE: 06/24/2016 SUBJECTIVE: The patient is clinically stable, no acute events overnight. No fevers, chills, nausea , vomiting, no shortness breath. OBJECTIVE: VITAL SIGNS: Blood pressure 132/66, respirations 20, pulse 95, temperature 98.8. HEENT: Head is normocephalic. NECK: Supple. HEART: Regular rate. LUNGS: Show diminished breath sounds at base. ABDOMEN: Soft, nontender to palpation. No rebound or guarding. EXTREMITIES: Negative for clubbing, cyanosis. No edema. DERMATOLOGIC: No rashes. MUSCULOSKELETAL: No joint effusions. NEUROLOGIC: No change in exam. MEDICATIONS: Have been reviewed. LABORATORY DATA: Has been reviewed. No new labs. ASSESSMENT AND PLAN: 1. 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 The patient is currently stable. Continue PT, OT. Continue current medical management. 2. Hypertension, controlled. Continue current blood pressure regimen. 3. Asymptomatic pyuria. We will continue to monitor. 4. Diabetes. Continue Accu-Cheks and sliding scale. Continue metformin. 5. Dyslipidemia. Continue statin therapy. 6. Gastrointestinal and deep venous thrombosis prophylaxis. Continue proton pump inhibitor and hep samuel. Dictated By: ALPESH CARPENTER/RENEE Conf#: [id number] DID#: [id number]
[2016-06-24 19:53] VITALS: BP 138/65; RESP 19
[2016-06-24] MEDS: SENNA TAB PO SCH (20:19)
[2016-06-24] MEDS: ATORVASTATIN 80 MG TAB PO SCH (20:19)
[2016-06-25] MEDS: HEPARIN 5,000 UNIT/0.5 ML SYG SC SCH ×3 (05:59→22:00)
[2016-06-25] MEDS: Insulin NOVOLOG SS MILD Algorithm (SS with meals and bedtime) SC SCH ×4 (07:05→21:00)
[2016-06-25 08:07] VITALS: BP 122/78; RESP 20
[2016-06-25] MEDS: DOCUSATE SODIUM 100 MG CAP PO SCH ×2 (08:52→21:00)
[2016-06-25] MEDS: ASPIRIN 81 MG TAB PO SCH (08:52)
[2016-06-25] MEDS: metFORMIN 500 MG TAB PO SCH ×2 (08:52→17:46)
[2016-06-25] MEDS: LISINOPRIL 20 MG TAB PO SCH (08:53)
[2016-06-25] MEDS: AMLODIPINE 10 MG TAB PO SCH (08:53)
--- NOTE | 2016-06-25 12:46 | CONS ---
Date/Time of Note Date/Time of Note DATE: 06/25/16 TIME: 12:45 Consult Date/Type/Reason Admit Date/Time Jun 18, 2016 at 17:50 Subjective No new complaints Objective pulm- cta abd- soft min/mod ambulation Vital Signs Date Time Temp Pulse Resp B/P Pulse Ox O2 Delivery O2 Flow Rate FiO2 06/25/16 08:07 98.6 20 122/78 95 Room Air 06/24/16 19:53 85 Intake and Output 06/24/16 06/24/16 06/25/16 15:00 23:00 07:00 Intake Total 650 ml 1150 ml Balance 650 ml 1150 ml Results/Medications Result Diagram: 06/24/16 0943 06/24/16 0943 Results 24 hrs Laboratory Tests Test 06/24/16 16:53 06/24/16 20:07 06/25/16 07:13 06/25/16 11:35 Bedside Glucose 106 93 104 97 Medications Current Medications Docusate Sodium (Colace) 100 mg BID PO Last administered on 06/25/16 08:52; Admin Dose 100 MG; Start 06/18/16 at 21:00 Senna (Senokot) 1 tab HS PO Last administered on 06/24/16 20:19; Admin Dose 1 TAB; Start 06/18/16 at 21:00 Acetaminophen (Tylenol Tab) 650 mg Q4H PRN PO PAIN Last administered on 07:42; Admin Dose 650 MG; Start 06/18/16 at 19:00 Bisacodyl (Dulcolax Supp) 10 mg DAILY PRN [place] CONSTIPATION; Start 06/18/16 at 19 :00 Magnesium Hydroxide (Milk Of Mag) 30 ml BID PRN PO CONSTIPATION; Start at 19:00 Lactulose (Enulose) 20 gm DAILY PRN PO CONSTIPATION; Start 06/18/16 at 19:00 Miscellaneous Information 1 ea NOTE XX ; Start 06/18/16 at 19:00 Glucose (Glutose) 15 gm Q15M PRN PO DECREASED GLUCOSE; Start 06/18/16 at 19:00 Glucose (Glutose) 22.5 gm Q15M PRN PO DECREASED GLUCOSE; Start 06/18/16 at 19: 00 Dextrose (D50w Syringe) 25 ml Q15M PRN IV DECREASED GLUCOSE; Start 06/18/16 at 19:00 Dextrose (D50w Syringe) 50 ml Q15M PRN IV DECREASED GLUCOSE; Start 06/18/16 at 19:00 Glucagon (Glucagen) 1 mg Q15M PRN IM DECREASED GLUCOSE; Start 06/18/16 at 19:00 Glucose (Glutose) 15 gm Q15M PRN BUCCAL DECREASED GLUCOSE; Start 06/18/16 at 19 :00 Amlodipine Besylate (Norvasc) 10 mg DAILY PO Last administered on 06/25/16 08: 53; Admin Dose 10 MG; Start 06/19/16 at 09:00 Aspirin (Aspirin) 81 mg DAILY PO Last administered on 06/25/16 08:52; Admin Dose 81 MG; Start 06/19/16 at 09:00 Atorvastatin Calcium (Lipitor) 80 mg HS PO Last administered on 06/24/16 20:19 ; Admin Dose 80 MG; Start 06/18/16 at 21:00 Heparin Sodium (Porcine) (Heparin (5000 Units/0.5 ml)) 5,000 unit Q8 SC Last administered on 06/25/16 05:59; Admin Dose 5,000 UNIT; Start 06/18/16 at 22:00 Lisinopril (Zestril) 40 mg DAILY PO Last administered on 06/25/16 08:53; Admin Dose 40 MG; Start 06/19/16 at 09:00 Assessment/Plan Additional Assessment/Plan Rehab- Left pontine infarct cerebrovascular accident with right-sided weakness. Progressing with rehab treatment. SW continues to work with patient regarding supervised environment. Dysphagia- speech therapy. Hypertension. Diabetes mellitus-monitor. FAINA JAIN MD Jun 25, 2016 12:46
--- NOTE | 2016-06-25 14:08 | PN ---
DATE: 06/25/2016 669SUBJECTIVE: Patient stable, no acute events, no fevers, chills. OBJECTIVE: VITAL SIGNS: Blood pressure 122/70, respirations 20, pulse is 85, temperature 98.5. HEENT: Head is normocephalic. NECK: Supple. HEART: Regular rate. LUNGS: Show diminished breath sound. ABDOMEN: Soft, nontender to palpation. No rebound or guarding. EXTREMITIES: Negative for clubbing, cyanosis. No edema. DERMATOLOGIC: No rashes. MUSCULOSKELETAL: No joint effusions. NEUROLOGIC: No change in exam. MEDICATIONS: The patient's medications have been reviewed. LABORATORY DATA: Have been reviewed. The patient's CBC within normal limits. ASSESSMENT AND PLAN: 1. 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 The patient is currently stable. Continue PT, OT. Continue current medical management. 2. Hypertension, controlled. Continue current blood pressure regimen. 3. Asymptomatic pyuria. We will continue to monitor. No evidence of infection. 4. Diabetes. Continue current insulin regimen. Continue metformin. 5. Dyslipidemia. Continue statin therapy. 6. GI and deep venous thrombosis prophylaxis. Continue proton pump inhibitor and heparin. Dictated By: ALPESH CARPENTER/RENEE Conf#: [id number] DID#: [id number]
[2016-06-25 20:00] VITALS: BP 127/77; RESP 18
[2016-06-25] MEDS: ATORVASTATIN 80 MG TAB PO SCH (20:49)
[2016-06-25] MEDS: SENNA TAB PO SCH (21:00)
[2016-06-26] MEDS: HEPARIN 5,000 UNIT/0.5 ML SYG SC SCH ×3 (05:51→21:14)
[2016-06-26] MEDS: Insulin NOVOLOG SS MILD Algorithm (SS with meals and bedtime) SC SCH ×4 (07:05→21:00)
[2016-06-26 07:30] VITALS: BP 132/81; RESP 18
[2016-06-26] MEDS: ASPIRIN 81 MG TAB PO SCH (08:48)
[2016-06-26] MEDS: metFORMIN 500 MG TAB PO SCH ×2 (08:48→18:02)
[2016-06-26] MEDS: DOCUSATE SODIUM 100 MG CAP PO SCH ×2 (08:48→21:15)
[2016-06-26] MEDS: AMLODIPINE 10 MG TAB PO SCH (08:49)
[2016-06-26] MEDS: LISINOPRIL 20 MG TAB PO SCH (08:49)
--- NOTE | 2016-06-26 10:47 | PN ---
DATE: 06/26/2016 SUBJECTIVE: The patient remains stable, no acute events overnight. No fevers, chills, nausea, vomi ting, no shortness of breath. OBJECTIVE: VITAL SIGNS: Blood pressure is 127/77, respiration 18, pulse 87, temperature 98.6. HEENT: Head is normocephalic. NECK: Supple. HEART: Regular rate. LUNGS: Show diminished breath sounds at the base. ABDOMEN: Soft, nontender to palpation without rebound or guarding. EXTREMITIES: Negative for clubbing, cyanosis, edema. DERMATOLOGIC: No rashes. MUSCULOSKELETAL: No joint effusions. NEUROLOGIC: No change in exam. MEDICATIONS: Have been reviewed. LABORATORY DATA: Has been reviewed. ASSESSMENT AND PLAN: 1. 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 The patient is stable. Continue PT, OT. 2. Hypertension, controlled. 3. Asymptomatic pyuria, will continue to monitor. 4. Diabetes. Continue current insulin regimen. Continue metformin. 5. Dyslipidemia. Continue statin therapy. 6. Gastrointestinal and deep venous thrombosis prophylaxis. Continue proton pump inhibitor and hep samuel. Dictated By: ALPESH CARPENTER/RENEE Conf#: [id number] DID#: [id number]
--- NOTE | 2016-06-26 13:34 | CONS ---
Date/Time of Note Date/Time of Note DATE: 06/26/16 TIME: 13:33 Consult Date/Type/Reason Admit Date/Time Jun 18, 2016 at 17:50 Subjective Continues to improve Objective pulm- cta card- s1s2 min assist ambulation Vital Signs Date Time Temp Pulse Resp B/P Pulse Ox O2 Delivery O2 Flow Rate FiO2 06/26/16 07:30 98.8 77 18 132/81 95 06/25/16 08:07 Room Air Intake and Output 06/25/16 06/25/16 06/26/16 15:00 23:00 07:00 Intake Total 450 ml 450 ml Output Total 500 ml Balance -50 ml 450 ml Results/Medications Result Diagram: 06/24/1643 06/24/16 0943 Results 24 hrs Laboratory Tests Test 06/25/16 17:05 06/25/16 20:25 06/26/16 07:35 06/26/16 11:55 Bedside Glucose 108 130 104 123 Medications Current Medications Docusate Sodium (Colace) 100 mg BID PO Last administered on 06/26/16 08:48; Admin Dose 100 MG; Start 06/18/16 at 21:00 Senna (Senokot) 1 tab HS PO Last administered on 06/24/16 20:19; Admin Dose 1 TAB; Start 06/18/16 at 21:00 Acetaminophen (Tylenol Tab) 650 mg Q4H PRN PO PAIN Last administered on 07:42; Admin Dose 650 MG; Start 06/18/16 at 19:00 Bisacodyl (Dulcolax Supp) 10 mg DAILY PRN [place] CONSTIPATION; Start 06/18/16 at 19 :00 Magnesium Hydroxide (Milk Of Mag) 30 ml BID PRN PO CONSTIPATION; Start at 19:00 Lactulose (Enulose) 20 gm DAILY PRN PO CONSTIPATION; Start 06/18/16 at 19:00 Miscellaneous Information 1 ea NOTE XX ; Start 06/18/16 at 19:00 Glucose (Glutose) 15 gm Q15M PRN PO DECREASED GLUCOSE; Start 06/18/16 at 19:00 Glucose (Glutose) 22.5 gm Q15M PRN PO DECREASED GLUCOSE; Start 06/18/16 at 19: 00 Dextrose (D50w Syringe) 25 ml Q15M PRN IV DECREASED GLUCOSE; Start 06/18/16 at 19:00 Dextrose (D50w Syringe) 50 ml Q15M PRN IV DECREASED GLUCOSE; Start 06/18/16 at 19:00 Glucagon (Glucagen) 1 mg Q15M PRN IM DECREASED GLUCOSE; Start 06/18/16 at 19:00 Glucose (Glutose) 15 gm Q15M PRN BUCCAL DECREASED GLUCOSE; Start 06/18/16 at 19 :00 Amlodipine Besylate (Norvasc) 10 mg DAILY PO Last administered on 06/26/16 08: 49; Admin Dose 10 MG; Start 06/19/16 at 09:00 Aspirin (Aspirin) 81 mg DAILY PO Last administered on 06/26/16 08:48; Admin Dose 81 MG; Start 06/19/16 at 09:00 Atorvastatin Calcium (Lipitor) 80 mg HS PO Last administered on 06/25/16 20:49 ; Admin Dose 80 MG; Start 06/18/16 at 21:00 Heparin Sodium (Porcine) (Heparin (5000 Units/0.5 ml)) 5,000 unit Q8 SC Last administered on 06/26/16 05:51; Admin Dose 5,000 UNIT; Start 06/18/16 at 22:00 Lisinopril (Zestril) 40 mg DAILY PO Last administered on 06/26/16 08:49; Admin Dose 40 MG; Start 06/19/16 at 09:00 Assessment/Plan Additional Assessment/Plan Rehab- Left pontine infarct cerebrovascular accident with right-sided weakness. Possible dc tomorrow Dysphagia- speech therapy. Hypertension. Diabetes mellitus-monitor. FAINA JAIN MD Jun 26, 2016 13:34
[2016-06-26 20:00] VITALS: BP 128/77; RESP 18
[2016-06-26] MEDS ORDERED: GUAIFENESIN/DM 5ML CUP PO PRN (20:30)
[2016-06-26] MEDS: SENNA TAB PO SCH (21:00)
[2016-06-26] MEDS: ATORVASTATIN 80 MG TAB PO SCH (21:15)
[2016-06-27] MEDS: HEPARIN 5,000 UNIT/0.5 ML SYG SC SCH (06:45)
[2016-06-27] MEDS: Insulin NOVOLOG SS MILD Algorithm (SS with meals and bedtime) SC SCH (07:05)
[2016-06-27 07:30] VITALS: BP 138/86; RESP 18
[2016-06-27] MEDS: LISINOPRIL 20 MG TAB PO SCH (08:15)
[2016-06-27] MEDS: AMLODIPINE 10 MG TAB PO SCH (08:15)
[2016-06-27] MEDS: ASPIRIN 81 MG TAB PO SCH (08:15)
[2016-06-27] MEDS: DOCUSATE SODIUM 100 MG CAP PO SCH (08:15)
[2016-06-27] MEDS: metFORMIN 500 MG TAB PO SCH (08:15)
--- NOTE | 2016-06-27 10:54 | PN ---
DATE: 06/27/2016 SUBJECTIVE: The patient is stable, no acute events overnight. The patient is pending transfer to [facility]. No other events noted. OBJECTIVE: VITAL SIGNS: Blood pressure 128/77, respirations 18, pulse 100, temperature 98.5. HEENT: Head is normocephalic. NECK: Supple. HEART: Regular rate. LUNGS: Show diminished breath sounds at the bases. ABDOMEN: Soft, nontender to palpation. No rebound or guarding. EXTREMITIES: Negative for clubbing, cyanosis. No edema. DERMATOLOGIC: No rashes. MUSCULOSKELETAL: No joint effusions. NEUROLOGIC: No change in exam. MEDICATIONS: The patient's medications have been reviewed. ASSESSMENT AND PLAN: 1. 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 The patient is currently stable. Continue PT, OT. 2. Hypertension, controlled. 3. Asymptomatic pyuria. Continue to monitor. 4. Diabetes. Continue Accu-Cheks and insulin sliding scale. Continue metformin. 5. Dyslipidemia. Continue statin therapy. 6. Gastrointestinal and deep venous thrombosis prophylaxis. Continue proton pump inhibitor and hep samuel. Dictated By: ALPESH VILLANUEVA DO NR/RENEE Conf#: [id number] DID#: [id number]
== END 2016-06-27 11:30 | DRG 57 ==
LOC: VRC 17:50
PROVIDERS: ADMIT Physical Medicine & Rehabilitation; ATTEND Internal Medicine Nephrology
DX: I69.351 Hemiplegia and hemiparesis following cerebral infarction affecting right dominant side (principal); N39.0 Urinary tract infection, site not specified; I10 Essential (primary) hypertension; R13.10 Dysphagia, unspecified; E78.5 Hyperlipidemia, unspecified; R73.9 Hyperglycemia, unspecified; I69.991 Dysphagia following unspecified cerebrovascular disease; E11.9 Type 2 diabetes mellitus without complications; I69.951 Hemiplegia and hemiparesis following unspecified cerebrovascular disease affecting right dominant side; I69.922 Dysarthria following unspecified cerebrovascular disease
CPT/HCPCS: 80048; 80053; 81001; 81003; 82962; 83036; 83735; 84100; 85025; 87081; 87086; 92507; 92523; 92526; 92610; 95852; 97110; 97112; 97116; 97163; 97167; 97530; 97535; 97542; J1815; L1820; L1932; L2820